=== PATIENT | male | born 1935 | race Two or more races ===

== ENCOUNTER 2018-12-14 15:37 | Emergency (ER) | payer MEDICARE, OTHER ==
[2018-12-14 17:02] VITALS: BP 164/65
--- NOTE | 2018-12-14 19:20 | ER Document Report ---
Entered by JOSÉ WASSERMAN SCRIBE 12/14/18 6610 Acting as scribe for:VANIA LYNN DO ED General - General Chief Complaint: Urinary Retention Stated Complaint: SCHWARTZ ISSUES Time Seen by Provider: 12/14/18 15:58 Mode of Arrival: Ambulatory Information source: Relative Notes: Patient is an 83 year old male with a schwartz catheter presents to the emergency department accompanied by and daughter complaining of urinary retention. Daughter states the patient's schwartz catheter recently fell out and he has been unable to void without it. She states his current catheter has been out for approximately 4 hour and he has been unable to void. Daughter reports he has had 4 catheters varying in size of the past 1-2 months due to acute urinary retention from prostatic hypertrophy further stating 14cm works the best. TRAVEL OUTSIDE OF THE [place] IN LAST 30 DAYS: No - Related Data Allergies/Adverse Reactions: No Known Allergies Allergy (Unverified 12/14/18 15:41) Past Medical History - General Information source: Patient, Relative - Social History Smoking Status: Never Smoker Cigarette use (# per day): No Chew tobacco use (# tins/day): No Smoking Education Provided: No Family History: Reviewed & Not Pertinent Review of Systems - Review of Systems Constitutional: No symptoms reported EENT: No symptoms reported Cardiovascular: No symptoms reported Respiratory: No symptoms reported Gastrointestinal: No symptoms reported Genitourinary: No symptoms reported Male Genitourinary: No symptoms reported Musculoskeletal: No symptoms reported Skin: No symptoms reported Hematologic/Lymphatic: No symptoms reported Neurological/Psychological: No symptoms reported -: Yes All other systems reviewed and negative Physical Exam - Vital signs Vitals: Temp Pulse Resp BP Pulse Ox 97.5 F 64 16 174/74 H 97 12/14/18 15:44 12/14/18 15:44 12/14/18 15:44 12/14/18 15:44 12/14/18 15:44 - Notes Notes: GENERAL: Alert, interacts well. No acute distress. HEAD: Normocephalic, atraumatic. EYES: Pupils equal, round, and reactive to light. Extraocular movements intact. ENT: Oral mucosa moist, tongue midline. NECK: Full range of motion. Supple. Trachea midline. LUNGS: Clear to auscultation bilaterally, no wheezes, rales, or rhonchi. No respiratory distress. EXTREMITIES: Moves all 4 extremities spontaneously. NEUROLOGICAL: Alert and oriented x3. Normal speech. PSYCH: Normal affect, normal mood. SKIN: Warm, dry, normal turgor. No rashes or lesions noted. Course - Re-evaluation Re-evalutation: 12/14/18 16:11 Schwartz catheter will be reinserted. Patient is failed trial of voiding. Patient is already on finasteride and Flomax. Patient will be discharged to home to follow-up with his urologist. 12/14/18 17:[address], size 14, 300 mL's of clear urine drained. Tolerated the procedure well. No leakage from around the catheter. External genitalia unremarkable without any signs of trauma. - Vital Signs Vital signs: Temp Pulse Resp BP Pulse Ox 97.6 F 68 16 164/65 H 98 12/14/18 17:02 12/14/18 17:02 12/14/18 15:44 12/14/18 17:02 12/14/18 17:02 Discharge - Discharge Clinical Impression: Prostate hypertrophy, Urinary retention due to benign prostatic hyperplasia Condition: Stable Disposition: HOME, SELF-CARE Additional Instructions: Schwartz Catheter Care Tube Position: Keep the catheter connected to the drainage tubing at all times. Avoid pulling on the catheter. Keep the drainage tube taped to the mid- thigh, on top of your leg (not underneath it). Be sure there are no kinks or loops in the tube. Keep the drainage bag below the bladder. When in bed, the drainage bag should hang below the abdomen but should not lie on the floor. The drainage bag has hooks at the top so it can be hung on a chair or bed. Daily Cleaning: Wash your hands with soap and water before and after caring for your catheter. Twice a day, clean yourself where the catheter goes into the urethra. Use a warm, soapy wash cloth to clean around the urethral opening and the first few inches of the catheter. Females should wash from front to back to decrease the risk of infection from fecal material. After washing with soap, rinse the area with water. Do not put powder around the catheter. Apply ointment only if instructed by your doctor or nurse. Follow up if you develop fever or chills, flank or abdominal pain, blood in the urine, or if urine is not draining into the catheter. Scribe Attestation: 12/14/18 19:20 I personally performed the services described in the documentation, reviewed and edited the documentation which was dictated to the scribe in my presence, and it accurately records my words and actions. I personally performed the services described in the documentation, reviewed and edited the documentation which was dictated to the scribe in my presence, and it accurately records my words and actions.
== END 2018-12-14 17:02 | disposition home or self-care (01) ==
LOC: ER 15:37
DX: N40.0 Benign prostatic hyperplasia without lower urinary tract symptoms (principal); R33.9 Retention of urine, unspecified
CPT/HCPCS: 51702; 99283

== ENCOUNTER 2019-03-15 16:57 | Inpatient (IN) | payer MEDICARE, OTHER ==
--- NOTE | 2019-03-15 17:10 | ER Document Report ---
ED Medical Screen (RME) - General Chief Complaint: Decreased Appetite Stated Complaint: FEVER Time Seen by Provider: 03/15/19 17:04 Mode of Arrival: Ambulatory Information source: Patient, Relative - DAUGHTER Notes: Patient presents to the emergency department with complaints of weakness for a bout a week, worse the past day or so. Daughter reports patient has prostate issues. He recently had a procedure to reduce the prostate on March 02. Surgery was done in [facility] where he lives. Family has a house here at [facility] and are visiting. His Diaz catheter was removed on March 09. According to the daughter he was voiding okay. Patient reports he is voiding now without problems. Daughter reports temperature of 102 at home. No antipyretics given temperature upon arrival was 100.0. Reports her father will not eat, reports he is already full. Denies vomiting diarrhea. Patient reports he feels fine although he does not look like he feels fine. Looks pale eyes are red rimmed. Left wrist hand with ecchymosis. Daughter reports he fell out of the chair while he was sleeping yesterday. I have greeted and performed a rapid initial assessment of this patient. A c omprehensive ED assessment and evaluation of the patient, analysis of test results and completion of the medical decision making process will be conducted by additional ED providers. Dictation of this chart was performed using voice recognition software; therefore, there may be some unintended grammatical errors. TRAVEL OUTSIDE OF THE [place] IN LAST 30 DAYS: No - Related Data Allergies/Adverse Reactions: No Known Allergies Allergy (Verified 03/15/19 16:57) Past Medical History Renal/ Medical History: Denies: Hx Peritoneal Dialysis Past Surgical History: Reports: Hx Abdominal Surgery - hernia repairs Physical Exam - Vital signs Vitals: Temp Pulse Resp BP Pulse Ox 100 F 103 H 34 H 157/62 H 91 L 03/15/19 17:04 03/15/19 17:04 03/15/19 17:04 03/15/19 17:04 03/15/19 17:04 Course - Vital Signs Vital signs: Temp Pulse Resp BP Pulse Ox 102.6 F H 103 H 34 H 157/62 H 91 L 03/15/19 17:52 03/15/19 17:04 03/15/19 17:04 03/15/19 17:04 03/15/19 17:04 - Laboratory Result Diagrams: 03/15/19 17:15 03/15/19 17:15 Laboratory results interpreted by me: 03/15/19 03/15/19 03/15/19 17:15 17:15 17:15 WBC 13.6 H RBC 3.71 L Hgb 10.4 L Hct 32.1 L RDW 14.7 H Seg Neutrophils % 85.7 H Lymphocytes % 7.5 L Absolute Neutrophils 11.7 H VBG pH Sodium 136.9 L Carbon Dioxide 21 L Glucose 159 H Lactic Acid 3.2 H Urine Protein Urine Ketones Urine Blood Ur Leukocyte Esterase Urine Ascorbic Acid 03/15/19 03/15/19 18:03 18:30 WBC RBC Hgb Hct RDW Seg Neutrophils % Lymphocytes % Absolute Neutrophils VBG pH 7.44 H Sodium Carbon Dioxide Glucose Lactic Acid Urine Protein 100 H Urine Ketones TRACE H Urine Blood LARGE H Ur Leukocyte Esterase LARGE H Urine Ascorbic Acid 20 H
[2019-03-15 17:38] LABS: ABSOLUTE EOSINOPHILS # (AUTO) 0.2 10^3/uL (0.0-0.6); ABSOLUTE MONOCYTES (AUTO) 0.7 10^3/uL (0.1-1.4); ABSOLUTE NEUT (AUTO) 11.7 10^3/uL (1.7-8.2); BASOPHILS % (AUTO) 0.1 % (0-2); EOSINOPHILS % (AUTO) 1.6 % (0-6); HEMATOCRIT 32.1 % (37.9-51.0); HEMOGLOBIN 10.4 g/dL (13.5-17.0); LYMPHOCYTES % (AUTO) 7.5 % (13-45); MEAN CORPUSCULAR HEMOGLOBIN 28.1 pg (27.0-33.4); MEAN CORPUSCULAR HGB CONC 32.5 g/dL (32.0-36.0); MEAN CORPUSCULAR VOLUME 87 fl (80-97); MONOCYTES % (AUTO) 5.1 % (3-13); PLATELET COUNT 249 10^3/uL (150-450); RED BLOOD COUNT 3.71 10^6/uL (4.35-5.55); RED CELL DISTRIBUTION WIDTH 14.7 % (11.5-14.0); SEGMENTED NEUTROPHILS % (AUTO) 85.7 % (42-78); TOTAL CELLS COUNTED % (AUTO) 100 %; WHITE BLOOD COUNT 13.6 10^3/uL (4.0-10.5)
[2019-03-15 17:52] LABS: ALANINE AMINOTRANSFERASE 27 U/L (21-72); ALBUMIN 3.5 g/dL (3.5-5.0); ALKALINE PHOSPHATASE 94 U/L (38-126); ANION GAP 12 (5-19); ASPARTATE AMINO TRANSFERASE 27 U/L (17-59); BILIRUBIN,DIRECT 0.3 mg/dL (0.0-0.4); BILIRUBIN,TOTAL 0.6 mg/dL (0.2-1.3); BLOOD UREA NITROGEN 17 mg/dL (7-20); CALCIUM 8.6 mg/dL (8.4-10.2); CARBON DIOXIDE 21 mmol/L (22-30); CHLORIDE 104 mmol/L (98-107); GLUCOSE 159 mg/dL (75-110); POTASSIUM 3.6 mmol/L (3.6-5.0); SODIUM 136.9 mmol/L (137-145)
--- NOTE | 2019-03-15 18:05 | RADIOLOGY REPORT (SQ) ---
EXAM DESCRIPTION: CHEST 2 VIEWS COMPLETED DATE/TIME: 03/15/2019 5:45 pm REASON FOR STUDY: fever COMPARISON: None. TECHNIQUE: Frontal and lateral radiographic views of the chest acquired. NUMBER OF VIEWS: Two view. LIMITATIONS: None. FINDINGS: LUNGS AND PLEURA: No pneumothorax. Coarse interstitial -nodular changes in both lungs, ba silar predominance, left greater than right. No dense consolidation or significant pleural effusion. MEDIASTINUM AND HILAR STRUCTURES: Age-appropriate contour. HEART AND VASCULAR STRUCTURES: Normal size. BONES: No acute findings. HARDWARE: None in the chest. OTHER: No other significant finding. IMPRESSION: Coarse interstitial -nodular changes in both lungs, basilar predominance, left greater t miranda right. No dense consolidation or significant pleural effusion. TECHNICAL DOCUMENTATION: JOB ID: [id number] [id number] 2010 [employer]- All Rights Reserved Reading location - IP/workstation name: [email or web address]
[2019-03-15] MEDS ORDERED: NORMAL SALINE 1000 ML 1,000 ML IV ONE (18:44)
[2019-03-15 19:17] LABS: VENOUS BLOOD HCO3 23.7 mmol/L (20-32); VENOUS BLOOD PCO2 35.3 mmHg (35-63); VENOUS BLOOD PH 7.44 (7.30-7.42)
[2019-03-15 19:36] LABS: INTERNATIONAL RATION (INR) 1.03
[2019-03-15 19:51] LABS: APPEARANCE,URINE SLIGHTLY-CLOUDY; BILIRUBIN,URINE NEGATIVE (NEGATIVE); COLOR,URINE YELLOW; GLUCOSE, URINE NEGATIVE (NEGATIVE); KETONES,URINE TRACE mg/dL (NEGATIVE); LEUKOCYTE ESTERASE,URINE LARGE (NEGATIVE); NITRITE,URINE NEGATIVE (NEGATIVE); PROTEIN,URINE 100 mg/dL (NEGATIVE); URINE SPECIFIC GRAVITY 1.015; UROBILINOGEN,URINE NEGATIVE mg/dL (<2.0)
[2019-03-15] MEDS ORDERED: CEFTRIAXONE 1 GM/D5W RTU 1 GM/50 ML RTUPB IV ONE (20:00)
--- NOTE | 2019-03-15 20:59 | ER Document Report ---
Entered by JENA PINEDA SCRIBE 03/15/19 1844 Acting as scribe for:VANIA LYNN DO ED General - General Chief Complaint: Decreased Appetite Stated Complaint: FEVER Time Seen by Provider: 03/15/19 17:04 Mode of Arrival: Ambulatory Notes: Patient is an 83-year-old male presenting to the emergency department with a history of a TURP procedure on March 02, complaining of fever for the last few days. Daughter at bedside states that he had a fever of 99.5 yesterday that progressed to 102.5 today. Daughter states that he has been sluggish, coughing, has dyspnea on exertion, and has decreased appetite. Daughter states that patient has a history of BPH and that he had a catheter taken out 6 days ago on March 09. Daughter at bedside denies him having any confusion, vomiting, or diarrhea. TRAVEL OUTSIDE OF THE [place] IN LAST 30 DAYS: No - Related Data Allergies/Adverse Reactions: No Known Allergies Allergy (Verified 03/15/19 16:57) Past Medical History - General Information source: Patient, Relative - DAUGHTER - Social History Smoking Status: Never Smoker Cigarette use (# per day): No Chew tobacco use (# tins/day): No Frequency of alcohol use: None Drug Abuse: None Family History: Reviewed & Not Pertinent Patient has suicidal ideation: No Patient has homicidal ideation: No - Past Medical History Cardiac Medical History: Reports: Hx Hypercholesterolemia Endocrine Medical History: Denies: Hx Diabetes Mellitus Type 1, Hx Diabetes Mellitus Type 2 Renal/ Medical History: Reports: Hx Benign Prostatic Hyperplasia Past Surgical History: Reports: Hx Abdominal Surgery - hernia repairs, Other - TURP proceedure Review of Systems - Review of Systems Constitutional: See HPI, Fever, Malaise, Weakness EENT: No symptoms reported Cardiovascular: No symptoms reported Respiratory: See HPI, Cough, Other - Dyspnea on exertion Gastrointestinal: See HPI, Poor appetite. denies: Diarrhea, Vomiting Genitourinary: No symptoms reported Male Genitourinary: No symptoms reported Musculoskeletal: No symptoms reported Skin: No symptoms reported Hematologic/Lymphatic: No symptoms reported Neurological/Psychological: See HPI, Other - sluggishness. denies: Confusion -: Yes All other systems reviewed and negative Physical Exam - Vital signs Vitals: Temp Pulse Resp BP Pulse Ox 100 F 103 H 34 H 157/62 H 91 L 03/15/19 17:04 05/19/19 17:04 03/15/19 17:04 03/15/19 17:04 03/15/19 17:04 Interpretation: Tachypneic, Febrile - Notes Notes: PHYSICAL EXAM GENERAL: Alert, interacts well. No acute distress. HEAD: Normocephalic, atraumatic. EYES: Pupils equal, round, and reactive to light. Extraocular movements intact. ENT: Oral mucosa moist, tongue midline. NECK: Full range of motion. Supple. Trachea midline. LUNGS: Crackles in lower left lobe. Tachypneic. No wheezes, rales, or rhonchi. No respiratory distress. HEART: Regular rate and rhythm. No murmurs, gallops, or rubs. ABDOMEN: Soft, non-tender. Non-distended. Bowel sounds present in all 4 quadrants. No guarding, rigidity, or rebound. EXTREMITIES: 1+ pitting edema in the right lower extremity. Moves all 4 extremities spontaneously. No radial and dorsalis pedis pulses 2/4 bilaterally. No cyanosis. NEUROLOGICAL: Alert and oriented x3. Normal speech. PSYCH: Normal affect, normal mood. SKIN: Warm, dry. No rashes or lesions noted. Course - Re-evaluation Re-evalutation: 03/15/19 20:58 CBC shows leukocytosis at 13.6, there is an anemia with globin 10.4, no need for transfusion, lactic acid elevated at 3.2, no acidosis in the venous blood gas, mild dehydration with a CO2 of 21, no renal failure, urinalysis shows large blood and large leukocyte esterase, sent for culture, chest x-ray shows coarse interstitial nodular pattern. Patient was placed on oxygen due to his hypoxia. Patient will be treated with Rocephin IV, discussed with Dr. Leone the hospitalist who agrees to accept the patient to his service for urinary tract infection and possible atypical pneumonia on a medical floor. - Vital Signs Vital signs: Temp Pulse Resp BP Pulse Ox 100.0 F 103 H 29 H 117/60 99 03/15/19 21:36 03/15/19 17:04 03/15/19 22:01 03/15/19 22:00 03/15/19 22:01 - Laboratory Result Diagrams: 03/15/19 17:15 03/15/19 17:15 Laboratory results interpreted by me: 03/15/19 03/15/19 03/15/19 17:15 17:15 17:15 WBC 13.6 H RBC 3.71 L Hgb 10.4 L Hct 32.1 L RDW 14.7 H Seg Neutrophils % 85.7 H Lymphocytes % 7.5 L Absolute Neutrophils 11.7 H VBG pH Sodium 136.9 L Carbon Dioxide 21 L Glucose 159 H Lactic Acid 3.2 H Urine Protein Urine Ketones Urine Blood Ur Leukocyte Esterase Urine Ascorbic Acid 03/15/19 03/15/19 18:03 18:30 WBC RBC Hgb Hct RDW Seg Neutrophils % Lymphocytes % Absolute Neutrophils VBG pH 7.44 H Sodium Carbon Dioxide Glucose Lactic Acid Urine Protein 100 H Urine Ketones TRACE H Urine Blood LARGE H Ur Leukocyte Esterase LARGE H Urine Ascorbic Acid 20 H - EKG Interpretation by Me Additional EKG results interpreted by me: 03/15/19 20:59 EKG shows sinus rhythm at a rate of 87, left axis deviation, normal intervals, no ST segment elevations or depressions, no T wave inversions per my interpretation. Discharge - Discharge Clinical Impression: UTI (urinary tract infection), Hypoxia, Atypical pneumonia Condition: Fair Disposition: ADMITTED INPATIENT Admitting Provider: Sulema (Hospitalist) Unit Admitted: Medical Floor I personally performed the services described in the documentation, reviewed and edited the documentation which was dictated to the scribe in my presence, and it accurately records my words and actions.
[2019-03-15] MEDS ORDERED: ONDANSETRON HCL INJ/PF 4 MG/2 ML SDV IV PRN (21:26)
[2019-03-15] MEDS ORDERED: TEMAZEPAM 7.5 MG CAPSULE PO PRN (21:26)
[2019-03-15] MEDS ORDERED: MAG HYDROX/AL HYDROX/SIMETH SUSP 30 ML UDCUP PO PRN (21:26)
[2019-03-15] MEDS ORDERED: MAGNESIUM HYDROXIDE SUSP 30 ML UDCUP PO PRN (21:26)
[2019-03-15] MEDS ORDERED: NALBUPHINE HCL INJ 10 MG/1 ML AMPULE IV PRN (21:32)
[2019-03-15] MEDS ORDERED: LEVALBUTEROL HCL NEB 0.63 MG/3 ML AMPUL NEB PRN (21:32)
[2019-03-15] MEDS ORDERED: IBUPROFEN 800 MG TABLET PO PRN (21:32)
[2019-03-15] MEDS ORDERED: ACETAMINOPHEN 325 MG TABLET PO PRN (21:32)
[2019-03-15] MEDS ORDERED: ACETAMINOPHEN 650 MG SUPP.RECT PR PRN (21:32)
[2019-03-15] MEDS ORDERED: ERTAPENEM SODIUM INJ 1 GM VIAL IV PRN (21:45)
[2019-03-15] MEDS ORDERED: AZITHROMYCIN INJ 500 MG VIAL IV SCH (22:00)
[2019-03-15] MEDS ORDERED: ERTAPENEM SODIUM 1 GM in NORMAL SALINE 50 ML IV SCH (22:00)
[2019-03-15] MEDS ORDERED: ERTAPENEM SODIUM INJ 1 GM VIAL ONE (23:36)
[2019-03-15] MEDS ORDERED: AZITHROMYCIN INJ 500 MG VIAL IV ONE (23:36)
--- NOTE | 2019-03-15 23:48 | EKG REPORT ---
SEVERITY:- NORMAL ECG - SINUS RHYTHM : Confirmed by: Alfonzo Armstrong MD 15-Mar-2019 23:47:22
[2019-03-16] MEDS: RINGERS SOLUTION,LACTATED 1,000 ML IV PRN ×3 (00:17→15:40)
--- NOTE | 2019-03-16 00:28 | PDOC H&P ---
History of Present Illness Admission Date/PCP: 03/15/19 21:04 No PCP Patient complains of: Weakness History of Present Illness: YURI COLLADO is a 83 year old male who presented to the emergency room with a one- week history of progressive weakness. The patient his family admit progressive weakness beginning 1 week ago and becoming severe over the 24 hours prior to admission. His weakness was accompanied by dyspnea on exertion, swelling of his lower extremities, mild nonproductive cough, moderate anorexia, moderate fatigue and a fever which increased to 102.5 on the day of admission. They further explained that he recently had a TURP performed in [facility] and his Diaz catheter was removed on the of this month. He had not had any difficulty voiding since that time and has not been passing blood. They deny prior similar symptoms and have not identified any other aggravating or ameliorating factors for his weakness. In the emergency room he was found to have significant pyuria with an elevated lactate at 3.2, hyperglycemia and a chest x-ray showing bibasilar nodular interstitial infiltrates. With these findings patient was admitted to the hospital for further evaluation and treatment. Past Medical History Cardiac Medical History: Reports: Hyperlipidema, Hypertension Denies: Atrial Fibrillation, Congestive Heart Failure, Coronary Artery Disease, Myocardial Infarction, Peripheral Vascular Disease Pulmonary Medical History: Denies: Asthma, Chronic Obstructive Pulmonary Disease (COPD) EENT Medical History: Denies: Cataracts, Eyes - Prescription lenses, Ears - Hearing aids Neurological Medical History: Denies: Hemorrhagic CVA, Ischemic CVA, Seizures Endocrine Medical History: Denies: Diabetes Mellitus Type 1, Diabetes Mellitus Type 2, Hyperthyroidism, Hypothyroidism, Obesity Renal/ Medical History: Reports: Other - Cystolithiasis, benign prostatic hypertrophy Denies: Chronic Kidney Disease, Nephrolithiasis Malignancy Medical History: Reports: None GI Medical History: Denies: Cirrhosis, Hepatitis Musculoskeltal Medical History: Denies: Arthritis, Gout Skin Medical History: Denies: Eczema, Psoriasis Psychiatric Medical History: Denies: Alcohol Dependency, Substance Abuse, Tobacco Dependency Traumatic Medical History: Reports: None Hematology: Denies: Anemia, Bleeding Tendencies Infectious Medical History: Reports: Methicillin-Resistant Staph Aureus - Postoperative infection 3 months ago Past Surgical History Past Surgical History: TURP 03/02/19 Past Surgical History: Reports: Herniorrhaphy - Bilateral, Other - Cystoscopic removal of a large bladder stone after U/S destruction Social History Information Source: Patient, Relative Lives with: Family Smoking Status: Never Smoker Frequency of Alcohol Use: None Hx Recreational Drug Use: No Drugs: None Hx Prescription Drug Abuse: No - Advance Directive Resuscitation Status: Full Code Surrogate healthcare decision maker:: Jimena Osorio Family History Family History: Other - Father of tuberculosis Parental Family History Reviewed: Yes Children Family History Reviewed: No Sibling(s) Family History Reviewed.: Unknown Medication/Allergy Allergies/Adverse Reactions: No Known Allergies Allergy (Verified 03/15/19 16:57) Review of Systems Constitutional: PRESENT: as per HPI, anorexia, fatigue, fever(s), weakness. ABSENT: chills Eyes: ABSENT: visual disturbances, other - Ocular pain Ears: ABSENT: hearing changes, other - Ear pain Nose, Mouth, and Throat: ABSENT: mouth pain, sore throat Cardiovascular: PRESENT: as per HPI, dyspnea on exertion - Mild to moderate, edema - Bilateral lower extremities. ABSENT: chest pain, palpitations Respiratory: PRESENT: as per HPI, cough - Nonproductive. ABSENT: dyspnea - No dyspnea at rest, sputum Gastrointestinal: ABSENT: abdominal pain, constipation, diarrhea, nausea, vomiting Genitourinary: ABSENT: dysuria, hematuria Musculoskeletal: ABSENT: back pain, joint swelling, muscle weakness Integumentary: ABSENT: pruritus, rash Neurological: ABSENT: confusion, convulsions, focal weakness, memory loss, syncope Psychiatric: ABSENT: anxiety, depression Endocrine: ABSENT: cold intolerance, heat intolerance Hematologic/Lymphatic: ABSENT: easy bleeding, easy bruising Physical Exam Vital Signs: Temp Pulse Resp BP Pulse Ox 102.6 F H 103 H 34 H 157/62 H 91 L 03/15/19 17:52 03/15/19 17:04 03/15/19 17:04 03/15/19 17:04 03/15/19 17:04 Intake & Output 03/13/19 03/14/19 03/15/19 23:59 23:59 23:59 Weight 56 kg General appearance: PRESENT: no acute distress, cooperative Head exam: PRESENT: atraumatic, normocephalic Eye exam: ABSENT: conjunctival injection, scleral icterus Ear exam: PRESENT: normal external ear exam. ABSENT: bleeding, drainage Mouth exam: PRESENT: dry mucosa, neck supple Neck exam: ABSENT: JVD, thyromegaly, tracheal deviation Respiratory exam: PRESENT: clear to auscultation galileo, symmetrical, unlabored Cardiovascular exam: PRESENT: RRR. ABSENT: clicks, gallop, rubs Pulses: PRESENT: normal radial pulses, normal dorsalis pedis pul Vascular exam: PRESENT: normal capillary refill. ABSENT: pallor GI/Abdominal exam: PRESENT: distended - Minimal gaseous distention, hypoactive bowel sounds, soft Rectal exam: PRESENT: deferred Extremities exam: PRESENT: pedal edema - Trace bipedal edema, +1 edema - Bilateral pretibial edema. ABSENT: joint swelling Musculoskeletal exam: ABSENT: deformity, dislocation Neurological exam: PRESENT: alert, oriented to person, oriented to place, oriented to time, oriented to situation, CN II-XII grossly intact. ABSENT: motor sensory deficit Psychiatric exam: PRESENT: appropriate affect, normal mood Skin exam: PRESENT: dry, intact, warm. ABSENT: jaundice, rash, urticaria Results Laboratory Results: 03/15/19 17:15 03/15/19 17:15 03/15/19 03/15/19 03/15/19 17:15 17:15 17:15 WBC 13.6 H RBC 3.71 L Hgb 10.4 L Hct 32.1 L MCV 87 MCH 28.1 MCHC 32.5 RDW 14.7 H Plt Count 249 Seg Neutrophils % 85.7 H Lymphocytes % 7.5 L Monocytes % 5.1 Eosinophils % 1.6 Basophils % 0.1 Absolute Neutrophils 11.7 H Absolute Lymphocytes 1.0 Absolute Monocytes 0.7 Absolute Eosinophils 0.2 Absolute Basophils 0.0 VBG pH VBG pCO2 VBG HCO3 VBG Base Excess Sodium 136.9 L Potassium 3.6 Chloride 104 Carbon Dioxide 21 L Anion Gap 12 BUN 17 Creatinine 0.97 Est GFR ( Amer) > 60 Est GFR (Non-Af Amer) > 60 Glucose 159 H Lactic Acid 3.2 H Calcium 8.6 Total Bilirubin 0.6 AST 27 ALT 27 Alkaline Phosphatase 94 Total Protein 7.0 Albumin 3.5 Urine Color Urine Appearance Urine pH Ur Specific [place] Urine Protein Urine Glucose (UA) Urine Ketones Urine Blood Urine Nitrite Ur Leukocyte Esterase Urine WBC (Auto) Urine RBC (Auto) 03/15/19 03/15/19 18:03 18:30 WBC RBC Hgb Hct MCV MCH MCHC RDW Plt Count Seg Neutrophils % Lymphocytes % Monocytes % Eosinophils % Basophils % Absolute Neutrophils Absolute Lymphocytes Absolute Monocytes Absolute Eosinophils Absolute Basophils VBG pH 7.44 H VBG pCO2 35.3 VBG HCO3 23.7 VBG Base Excess 0 Sodium Potassium Chloride Carbon Dioxide Anion Gap BUN Creatinine Est GFR ( Amer) Est GFR (Non-Af Amer) Glucose Lactic Acid Calcium Total Bilirubin AST ALT Alkaline Phosphatase Total Protein Albumin Urine Color YELLOW Urine Appearance SLIGHTLY-CLOUDY Urine pH 6.0 Ur Specific [place] 1.015 Urine Protein 100 H Urine Glucose (UA) NEGATIVE Urine Ketones TRACE H Urine Blood LARGE H Urine Nitrite NEGATIVE Ur Leukocyte Esterase LARGE H Urine WBC (Auto) >182 Urine RBC (Auto) 175 Impressions: Chest X-Ray 03/15/19 17:15 IMPRESSION: Coarse interstitial -nodular changes in both lungs, basilar predominance, left greater than right. No dense consolidation or significant pleural effusion. Assessment and Plan - Diagnosis (1) SIRS (systemic inflammatory response syndrome) Is this a current diagnosis for this admission?: Yes Plan: Patient is noted to have a history of fever, elevated lactic acid and a known source of infection (urine) with systemic symptoms of fatigue and weakness as well as anorexia. Additionally he was noted to have a cough and an atypical pneumonia on chest x-ray. He will be treated with broad-spectrum antibiotics to cover his 2 potential sources of infection and cultures will be obtained. He will be observed closely for further signs or symptoms that may indicate a true sepsis. Serial laboratory evaluations including lactic acid, CBC, basic metabolic profile and magnesium levels will be obtained during his hospital course. Additionally a thyroid profile will be obtained. (2) Acute respiratory failure with hypoxia Is this a current diagnosis for this admission?: Yes Plan: Patient was noted to be hypoxic on room air and had excellent resolution of his hypoxia with nasal cannula oxygen at 2 L/min. He will continue to receive supplemental oxygen as needed per the oxygen protocol to maintain his O2 saturation at a normal level. His O2 saturation will be monitored throughout his hospital course. (3) UTI (urinary tract infection) Qualifiers: Urinary tract infection type: acute cystitis Hematuria presence: with hematuria Qualified Code(s): N30.01 - Acute cystitis with hematuria Is this a current diagnosis for this admission?: Yes Plan: Patient started on ertapenem IV pending culture results. Nubain 10 mg IV every 3 hours as needed for pain will be available for the patient's use. Patient's Flomax will be continued. He will be monitored with daily CBCs and metabolic profiles to evaluate his therapeutic response and monitor for complications. (4) Atypical pneumonia Is this a current diagnosis for this admission?: Yes Plan: Patient is started on IV azithromycin. He will be monitored on a regular basis for adequate oxygenation utilizing an O2 sat monitor. Additionally daily CBCs will be obtained as part of monitoring his therapeutic response. - Time Time Spent with patient: 25-34 minutes Medications reviewed and adjusted accordingly: Yes Anticipated discharge: Home - Inpatient Certification Based on my medical assessment, after consideration of the patient's comorbidities, presenting symptoms, or acuity I expect that the services needed warrant INPATIENT care.: Yes I certify that my determination is in accordance with my understanding of Medicare's requirements for reasonable and necessary INPATIENT services [42 CFR 412.3e].: Yes Medical Necessity: Need Close Monitoring Due to Risk of Patient Decompensation, Need For IV Fluids, Need for IV Antibiotics, Risk of Complication if Not Cared For in Hospital
[2019-03-16] MEDS: HEPARIN SOD (PORCINE) 5,000 UNIT/ML 1 ML SYRINGE SUBCUT SCH ×4 (02:37→22:22)
[2019-03-16] MEDS: FAMOTIDINE 20 MG TABLET PO SCH ×3 (05:16→22:22)
[2019-03-16 06:09] LABS: HEMATOCRIT 27.5 % (37.9-51.0); HEMOGLOBIN 9.2 g/dL (13.5-17.0); MEAN CORPUSCULAR HEMOGLOBIN 28.4 pg (27.0-33.4); MEAN CORPUSCULAR HGB CONC 33.4 g/dL (32.0-36.0); MEAN CORPUSCULAR VOLUME 85 fl (80-97); PLATELET COUNT 205 10^3/uL (150-450); RED BLOOD COUNT 3.24 10^6/uL (4.35-5.55); RED CELL DISTRIBUTION WIDTH 14.8 % (11.5-14.0)
[2019-03-16 08:42] LABS: FREE T3 2.88 pg/mL (2.77-5.27); FREE T4 (FREE THYROXINE) 1.45 ng/dL (0.78-2.19)
[2019-03-16 09:10] LABS: THYROID STIMULATING HORMONE 3.19 uIU/mL (0.47-4.68)
[2019-03-16 09:43] LABS: ANION GAP 9 (5-19); BLOOD UREA NITROGEN 13 mg/dL (7-20); CALCIUM 7.7 mg/dL (8.4-10.2); CARBON DIOXIDE 21 mmol/L (22-30); CHLORIDE 110 mmol/L (98-107); GLUCOSE 122 mg/dL (75-110); POTASSIUM 3.6 mmol/L (3.6-5.0); SODIUM 139.5 mmol/L (137-145)
[2019-03-16] MEDS: DOCUSATE SODIUM 100 MG CAPSULE PO SCH ×2 (11:10→18:17)
--- NOTE | 2019-03-16 14:06 | PDOC PROGRESS REPORT ---
Subjective Progress Note for:: 03/16/19 Subjective:: YURI COLLADO is a 83 year old male who presented to the emergency room with a one- week history of progressive weakness. The patient his family admit progressive weakness beginning 1 week ago and becoming severe over the 24 hours prior to admission. His weakness was accompanied by dyspnea on exertion, swelling of his lower extremities, mild nonproductive cough, moderate anorexia, moderate fatigue and a fever which increased to 102.5 on the day of admission. They further explained that he recently had a TURP performed in [facility] and his Diaz catheter was removed on the of this month. He had not had any difficulty voiding since that time and has not been passing blood. They deny prior similar symptoms and have not identified any other aggravating or ameliorating factors for his weakness. In the emergency room he was found to have significant pyuria with an elevated lactate at 3.2, hyperglycemia and a chest x-ray showing bibasilar nodular interstitial infiltrates. With these findings patient was admitted to the hospital for further evaluation and treatment. Reason For Visit: WEAKNESS Physical Exam Vital Signs: Temp Pulse Resp BP Pulse Ox 98.7 F 75 16 106/49 L 94 03/16/19 11:35 03/16/19 12:53 03/16/19 12:53 03/16/19 11:35 03/16/19 12:53 Intake & Output 03/15/19 03/16/19 03/17/19 06:59 06:59 06:59 Intake Total 2819 Output Total 720 Balance 2099 Weight 56.2 kg General appearance: PRESENT: no acute distress, well-developed, well-nourished Head exam: PRESENT: atraumatic, normocephalic Respiratory exam: PRESENT: clear to auscultation galileo. ABSENT: rales, rhonchi, wheezes Cardiovascular exam: PRESENT: RRR. ABSENT: diastolic murmur, rubs, systolic murmur GI/Abdominal exam: PRESENT: normal bowel sounds, soft. ABSENT: distended, guarding, mass, organolmegaly, rebound, tenderness Neurological exam: PRESENT: alert, awake, oriented to person, oriented to place, oriented to time, oriented to situation, CN II-XII grossly intact. ABSENT: motor sensory deficit Results Laboratory Results: 03/16/19 05:58 03/16/19 05:58 03/15/19 03/15/19 03/15/19 17:15 17:15 17:15 WBC 13.6 H RBC 3.71 L Hgb 10.4 L Hct 32.1 L MCV 87 MCH 28.1 MCHC 32.5 RDW 14.7 H Plt Count 249 Seg Neutrophils % 85.7 H Lymphocytes % 7.5 L Monocytes % 5.1 Eosinophils % 1.6 Basophils % 0.1 Absolute Neutrophils 11.7 H Absolute Lymphocytes 1.0 Absolute Monocytes 0.7 Absolute Eosinophils 0.2 Absolute Basophils 0.0 VBG pH VBG pCO2 VBG HCO3 VBG Base Excess Sodium 136.9 L Potassium 3.6 Chloride 104 Carbon Dioxide 21 L Anion Gap 12 BUN 17 Creatinine 0.97 Est GFR ( Amer) > 60 Est GFR (Non-Af Amer) > 60 Glucose 159 H Lactic Acid 3.2 H Calcium 8.6 Magnesium Total Bilirubin 0.6 AST 27 ALT 27 Alkaline Phosphatase 94 Total Protein 7.0 Albumin 3.5 TSH Free T4 Free T3 pg/mL Urine Color Urine Appearance Urine pH Ur Specific [place] Urine Protein Urine Glucose (UA) Urine Ketones Urine Blood Urine Nitrite Ur Leukocyte Esterase Urine WBC (Auto) Urine RBC (Auto) 03/15/19 03/15/19 03/15/19 18:03 18:30 23:21 WBC RBC Hgb Hct MCV MCH MCHC RDW Plt Count Seg Neutrophils % Lymphocytes % Monocytes % Eosinophils % Basophils % Absolute Neutrophils Absolute Lymphocytes Absolute Monocytes Absolute Eosinophils Absolute Basophils VBG pH 7.44 H VBG pCO2 35.3 VBG HCO3 23.7 VBG Base Excess 0 Sodium Potassium Chloride Carbon Dioxide Anion Gap BUN Creatinine Est GFR ( Amer) Est GFR (Non-Af Amer) Glucose Lactic Acid 0.9 Calcium Magnesium Total Bilirubin AST ALT Alkaline Phosphatase Total Protein Albumin TSH Free T4 Free T3 pg/mL Urine Color YELLOW Urine Appearance SLIGHTLY-CLOUDY Urine pH 6.0 Ur Specific [place] 1.015 Urine Protein 100 H Urine Glucose (UA) NEGATIVE Urine Ketones TRACE H Urine Blood LARGE H Urine Nitrite NEGATIVE Ur Leukocyte Esterase LARGE H Urine WBC (Auto) >182 Urine RBC (Auto) 175 03/16/19 03/16/19 03/16/19 01:47 05:58 05:58 WBC 10.0 RBC 3.24 L Hgb 9.2 L Hct 27.5 L MCV 85 MCH 28.4 MCHC 33.4 RDW 14.8 H Plt Count 205 Seg Neutrophils % Lymphocytes % Monocytes % Eosinophils % Basophils % Absolute Neutrophils Absolute Lymphocytes Absolute Monocytes Absolute Eosinophils Absolute Basophils VBG pH VBG pCO2 VBG HCO3 VBG Base Excess Sodium Potassium Chloride Carbon Dioxide Anion Gap BUN Creatinine Est GFR ( Amer) Est GFR (Non-Af Amer) Glucose Lactic Acid 1.6 0.8 Calcium Magnesium Total Bilirubin AST ALT Alkaline Phosphatase Total Protein Albumin TSH Free T4 Free T3 pg/mL Urine Color Urine Appearance Urine pH Ur Specific [place] Urine Protein Urine Glucose (UA) Urine Ketones Urine Blood Urine Nitrite Ur Leukocyte Esterase Urine WBC (Auto) Urine RBC (Auto) 03/16/19 03/16/19 05:58 05:58 WBC RBC Hgb Hct MCV MCH MCHC RDW Plt Count Seg Neutrophils % Lymphocytes % Monocytes % Eosinophils % Basophils % Absolute Neutrophils Absolute Lymphocytes Absolute Monocytes Absolute Eosinophils Absolute Basophils VBG pH VBG pCO2 VBG HCO3 VBG Base Excess Sodium 139.5 Potassium 3.6 Chloride 110 H Carbon Dioxide 21 L Anion Gap 9 BUN 13 Creatinine 0.74 Est GFR ( Amer) > 60 Est GFR (Non-Af Amer) > 60 Glucose 122 H Lactic Acid Calcium 7.7 L Magnesium 2.3 Total Bilirubin AST ALT Alkaline Phosphatase Total Protein Albumin TSH 3.19 Free T4 1.45 Free T3 pg/mL 2.88 Urine Color Urine Appearance Urine pH Ur Specific [place] Urine Protein Urine Glucose (UA) Urine Ketones Urine Blood Urine Nitrite Ur Leukocyte Esterase Urine WBC (Auto) Urine RBC (Auto) Impressions: Chest X-Ray 03/15/19 17:15 IMPRESSION: Coarse interstitial -nodular changes in both lungs, basilar predominance, left greater than right. No dense consolidation or significant pleural effusion. Assessment and Plan - Diagnosis (1) Acute respiratory failure with hypoxia Is this a current diagnosis for this admission?: Yes Plan: Improved. Due to underlying [place]. Continue supplemental oxygen, IV antibiotics. Day 2 IV Antibiotics. Follow up cultures. (2) SIRS (systemic inflammatory response syndrome) Is this a current diagnosis for this admission?: Yes Plan: Due to #1. Patient noted to have fever, elevated lactic acid and a known source of infection (urine) with systemic symptoms of fatigue and weakness as well as anorexia. Continue supplemental oxygen, IV antibiotics. Day 2 IV Antibiotics. Follow up cultures. (3) Atypical pneumonia Is this a current diagnosis for this admission?: Yes Plan: Patient is started on IV azithromycin. He will be monitored on a regular basis for adequate oxygenation utilizing an O2 sat monitor. Additionally daily CBCs will be obtained as part of monitoring his therapeutic response. (4) UTI (urinary tract infection) Qualifiers: Urinary tract infection type: acute cystitis Hematuria presence: with hematuria Qualified Code(s): N30.01 - Acute cystitis with hematuria Is this a current diagnosis for this admission?: Yes Plan: Complicated implicated likely due to recent TURP long-term catheter due to BPH prior to TURP. Continue meropenem IV. Continue flomax. Follow up urine culture.
[2019-03-16] MEDS: MEROPENEM 1 GM in NORMAL SALINE 50 ML IV SCH ×2 (15:41→22:21)
[2019-03-16] MEDS: TAMSULOSIN HCL 0.4 MG CAP.SR.24H PO SCH (18:19)
[2019-03-16] MEDS: AZITHROMYCIN 500 MG in DEXTROSE 5%-WATER 250 ML IV SCH (22:22)
[2019-03-17] MEDS: MEROPENEM 1 GM in NORMAL SALINE 50 ML IV SCH ×3 (06:07→22:11)
[2019-03-17] MEDS: HEPARIN SOD (PORCINE) 5,000 UNIT/ML 1 ML SYRINGE SUBCUT SCH ×3 (06:07→22:07)
[2019-03-17 06:50] LABS: HEMATOCRIT 26.1 % (37.9-51.0); HEMOGLOBIN 8.8 g/dL (13.5-17.0); MEAN CORPUSCULAR HEMOGLOBIN 28.8 pg (27.0-33.4); MEAN CORPUSCULAR HGB CONC 33.7 g/dL (32.0-36.0); MEAN CORPUSCULAR VOLUME 85 fl (80-97); PLATELET COUNT 216 10^3/uL (150-450); RED BLOOD COUNT 3.06 10^6/uL (4.35-5.55); RED CELL DISTRIBUTION WIDTH 15.1 % (11.5-14.0); WHITE BLOOD COUNT 9.4 10^3/uL (4.0-10.5)
[2019-03-17 07:23] LABS: ALANINE AMINOTRANSFERASE 46 U/L (21-72); ALBUMIN 2.6 g/dL (3.5-5.0); ALKALINE PHOSPHATASE 101 U/L (38-126); ANION GAP 9 (5-19); ASPARTATE AMINO TRANSFERASE 46 U/L (17-59); BILIRUBIN,DIRECT 0.3 mg/dL (0.0-0.4); BILIRUBIN,TOTAL 0.6 mg/dL (0.2-1.3); BLOOD UREA NITROGEN 10 mg/dL (7-20); CALCIUM 7.8 mg/dL (8.4-10.2); CARBON DIOXIDE 23 mmol/L (22-30); CHLORIDE 105 mmol/L (98-107); GLUCOSE 94 mg/dL (75-110); POTASSIUM 3.7 mmol/L (3.6-5.0); SODIUM 137.4 mmol/L (137-145); TOTAL PROTEIN 5.5 g/dL (6.3-8.2)
[2019-03-17] MEDS: DOCUSATE SODIUM 100 MG CAPSULE PO SCH ×2 (09:47→16:59)
[2019-03-17] MEDS: FAMOTIDINE 20 MG TABLET PO SCH ×2 (09:59→22:14)
[2019-03-17] MEDS: IPRATROPIUM/ALBUTEROL 0.5-2.5 MG/3 ML AMPUL NEB PRN (12:57)
[2019-03-17] MEDS: RINGERS SOLUTION,LACTATED 1,000 ML IV PRN (15:55)
[2019-03-17] MEDS ORDERED: HYDROCORTISONE TP PRN (17:20)
[2019-03-17] MEDS: TAMSULOSIN HCL 0.4 MG CAP.SR.24H PO SCH (17:21)
--- NOTE | 2019-03-17 17:25 | PDOC PROGRESS REPORT ---
Subjective Progress Note for:: 03/17/19 Subjective:: YURI COLLADO is a 83 year old male who presented to the emergency room with a one- week history of progressive weakness. The patient his family admit progressive weakness beginning 1 week ago and becoming severe over the 24 hours prior to admission. His weakness was accompanied by dyspnea on exertion, swelling of his lower extremities, mild nonproductive cough, moderate anorexia, moderate fatigue and a fever which increased to 102.5 on the day of admission. They further explained that [facility] Diaz catheter was removed on the of this month. He had not had any difficulty voiding since that time and has not been passing blood. They deny prior similar symptoms and have not identified any other aggravating or ameliorating factors for his weakness. In the emergency room he was found to have significant pyuria with an elevated lactate at 3.2, hyperglycemia and a chest x-ray showing bibasilar nodular interstitial infiltrates. With these findings patient was admitted to the hospital for further evaluation and treatment. 03/17/2019: Patient is a wheezing. He is on oxygen and does not have home oxygen at baseline. He also developed diarrhea since last night. Reason For Visit: WEAKNESS Physical Exam Vital Signs: Temp Pulse Resp BP Pulse Ox 98.6 F 78 16 114/55 L 94 03/17/19 07:49 03/17/19 13:03 03/17/19 13:03 03/17/19 07:49 03/17/19 13:03 Intake & Output 03/16/19 03/17/19 03/18/19 06:59 06:59 06:59 Intake Total 2819 3100 350 Output Total 720 Balance 2099 3100 350 Weight 123 lb 14.397 oz 123 lb 14.397 oz Exam: Patient is no acute distress Alert oriented to time place person No anxiety or depression Head: atraumatic normocephalic Pupils: are equal reactive Neck: is supple and trachea is central no lymphadenopathy No pharyngeal erythema or exudates Heart: Regular rate and rhythm Lungs: Bilateral wheezing Abdomen: nontender nondistended Neurological exam: unremarkable Musculoskeletal: No joint swelling or effusion chronic lower back pain and tenderness No suicidal or homicidal ideation Results Laboratory Results: 03/17/19 06:13 03/17/19 06:13 03/17/19 03/17/19 03/17/19 06:13 06:13 06:13 WBC 9.4 RBC 3.06 L Hgb 8.8 L Hct 26.1 L MCV 85 MCH 28.8 MCHC 33.7 RDW 15.1 H Plt Count 216 Sodium 137.4 Potassium 3.7 Chloride 105 Carbon Dioxide 23 Anion Gap 9 BUN 10 Creatinine 0.72 Est GFR ( Amer) > 60 Est GFR (Non-Af Amer) > 60 Glucose 94 Calcium 7.8 L Magnesium 2.2 Total Bilirubin 0.6 AST 46 ALT 46 Alkaline Phosphatase 101 Total Protein 5.5 L Albumin 2.6 L 03/15/19 18:03 Clean Catch Midstream Urine Culture - Final NO GROWTH 2 DAYS Impressions: Chest X-Ray 03/15/19 17:15 IMPRESSION: Coarse interstitial -nodular changes in both lungs, basilar predominance, left greater than right. No dense consolidation or significant pleural effusion. Assessment and Plan - Diagnosis (1) Acute respiratory failure with hypoxia Is this a current diagnosis for this admission?: Yes Plan: Improved. Due to underlying [place]. Continue supplemental oxygen, IV antibiotics. Day 2 IV Antibiotics. Follow up cultures. 03/17/2019: Currently on nasal cannula oxygen. Continue. Add DuoNeb due to wheezing. (2) Atypical pneumonia Is this a current diagnosis for this admission?: Yes Plan: Patient is started on IV azithromycin. He will be monitored on a regular basis for adequate oxygenation utilizing an O2 sat monitor. Additionally daily CBCs will be obtained as part of monitoring his therapeutic response. 02/26 and 11/15: Continue current antibiotics. Monitor clinically. DuoNeb as needed. Oxygen as needed. (3) SIRS (systemic inflammatory response syndrome) Is this a current diagnosis for this admission?: Yes Plan: Due to #1. Patient noted to have fever, elevated lactic acid and a known source of infection (urine) with systemic symptoms of fatigue and weakness as well as anorexia. Continue supplemental oxygen, IV antibiotics. Day 2 IV Antibiotics. Follow up cultures. 03/17/2019: Continue antibiotics for pneumonia. Monitor clinically. (4) UTI (urinary tract infection) Qualifiers: Urinary tract infection type: acute cystitis Hematuria presence: with hematuria Qualified Code(s): N30.01 - Acute cystitis with hematuria Is this a current diagnosis for this admission?: Yes Plan: Complicated implicated likely due to recent TURP long-term catheter due to BPH prior to TURP. Continue meropenem IV. Continue flomax. Follow up urine culture. 03/17/2019: Antibiotics. Monitor culture.
[2019-03-17 18:51] LABS: ANION GAP 9 (5-19); BLOOD UREA NITROGEN 10 mg/dL (7-20); CALCIUM 7.5 mg/dL (8.4-10.2); CARBON DIOXIDE 23 mmol/L (22-30); CHLORIDE 103 mmol/L (98-107); GLUCOSE 108 mg/dL (75-110); POTASSIUM 3.5 mmol/L (3.6-5.0); SODIUM 135.2 mmol/L (137-145)
[2019-03-17] MEDS ORDERED: (PENDING PHARMACY ID) (Lovastatin [Altoprev] 20 MG) PO SCH (22:00)
[2019-03-17] MEDS ORDERED: LATANOPROST OU SCH (22:00)
[2019-03-17] MEDS: DORZOLAMIDE HCL 2%/TIMOLOL MALEAT 0.5% OPH SOLN 10 ML OU SCH (22:12)
[2019-03-17] MEDS: LATANOPROST 0.005% OPH SOLN 2.5 ML OU SCH (22:16)
[2019-03-17] MEDS: AZITHROMYCIN 500 MG in DEXTROSE 5%-WATER 250 ML IV SCH (22:54)
[2019-03-18] MEDS: IPRATROPIUM/ALBUTEROL 0.5-2.5 MG/3 ML AMPUL NEB PRN ×3 (00:12→18:38)
[2019-03-18] MEDS: HEPARIN SOD (PORCINE) 5,000 UNIT/ML 1 ML SYRINGE SUBCUT SCH ×3 (05:54→22:02)
[2019-03-18] MEDS: MEROPENEM 1 GM in NORMAL SALINE 50 ML IV SCH ×2 (05:57→13:19)
[2019-03-18 06:55] LABS: HEMATOCRIT 26.4 % (37.9-51.0); MEAN CORPUSCULAR HEMOGLOBIN 28.6 pg (27.0-33.4); MEAN CORPUSCULAR VOLUME 84 fl (80-97); PLATELET COUNT 237 10^3/uL (150-450); RED BLOOD COUNT 3.13 10^6/uL (4.35-5.55); RED CELL DISTRIBUTION WIDTH 14.3 % (11.5-14.0); WHITE BLOOD COUNT 7.1 10^3/uL (4.0-10.5)
[2019-03-18 07:19] LABS: ANION GAP 9 (5-19); BLOOD UREA NITROGEN 11 mg/dL (7-20); CALCIUM 8.2 mg/dL (8.4-10.2); CARBON DIOXIDE 23 mmol/L (22-30); CHLORIDE 107 mmol/L (98-107); GLUCOSE 100 mg/dL (75-110); POTASSIUM 3.6 mmol/L (3.6-5.0); SODIUM 139.4 mmol/L (137-145)
[2019-03-18] MEDS: DOCUSATE SODIUM 100 MG CAPSULE PO SCH ×2 (09:10→17:11)
[2019-03-18] MEDS: FINASTERIDE 5 MG TABLET PO SCH (09:12)
[2019-03-18] MEDS: DORZOLAMIDE HCL 2%/TIMOLOL MALEAT 0.5% OPH SOLN 10 ML OU SCH ×2 (09:12→17:11)
[2019-03-18] MEDS: FAMOTIDINE 20 MG TABLET PO SCH ×2 (09:12→22:08)
[2019-03-18] MEDS ORDERED: ONDANSETRON HCL INJ/PF 4 MG/2 ML SDV IV PRN (11:00)
--- NOTE | 2019-03-18 14:00 | PDOC PROGRESS REPORT ---
Subjective Progress Note for:: 03/18/19 Subjective:: YURI COLLADO is a 83 year old male who presented to the emergency room with a one- week history of progressive weakness. The patient his family admit progressive weakness beginning 1 week ago and becoming severe over the 24 hours prior to admission. His weakness was accompanied by dyspnea on exertion, swelling of his lower extremities, mild nonproductive cough, moderate anorexia, moderate fatigue and a fever which increased to 102.5 on the day of admission. They further explained that he recently had a TURP performed in [facility] and his Diaz catheter was removed on the of this month. He had not had any difficulty voiding since that time and has not been passing blood. They deny prior similar symptoms and have not identified any other aggravating or ameliorating factors for his weakness. In the emergency room he was found to have significant pyuria with an elevated lactate at 3.2, hyperglycemia and a chest x-ray showing bibasilar nodular interstitial infiltrates. With these findings patient was admitted to the hospital for further evaluation and treatment. 03/17/2019: Patient is a wheezing. He is on oxygen and does not have home oxygen at baseline. He also developed diarrhea since last night. 03/18/2019: Patient is improving. He says he is feeling better. Is tolerating diet. He still requires oxygen. He is also still wheezing. Diarrhea has resolved. C. difficile was negative. Reason For Visit: WEAKNESS Physical Exam Vital Signs: Temp Pulse Resp BP Pulse Ox 98.1 F 72 18 103/60 97 03/18/19 12:00 03/18/19 12:30 03/18/19 12:30 03/18/19 12:00 03/18/19 12:30 Intake & Output 03/17/19 03/18/19 03/19/19 06:59 06:59 06:59 Intake Total 3100 2050 1100 Output Total 200 Balance 3100 1850 1100 Weight 123 lb 14.397 oz 123 lb 14.397 oz Exam: Patient is no acute distress Alert oriented to time place person No anxiety or depression Head: atraumatic normocephalic Pupils: are equal reactive Neck: is supple and trachea is central no lymphadenopathy No pharyngeal erythema or exudates Heart: Regular rate and rhythm Lungs: Bilateral wheezing Abdomen: nontender nondistended Neurological exam: unremarkable Musculoskeletal: No joint swelling or effusion chronic lower back pain and tenderness No suicidal or homicidal ideation Results Laboratory Results: 03/18/19 06:33 03/18/19 06:33 03/17/19 03/18/19 03/18/19 17:53 06:33 06:33 WBC 7.1 RBC 3.13 L Hgb 9.0 L Hct 26.4 L MCV 84 MCH 28.6 MCHC 34.0 RDW 14.3 H Plt Count 237 Sodium 135.2 L 139.4 Potassium 3.5 L 3.6 Chloride 103 107 Carbon Dioxide 23 23 Anion Gap 9 9 BUN 10 11 Creatinine 0.67 0.67 Est GFR ( Amer) > 60 > 60 Est GFR (Non-Af Amer) > 60 > 60 Glucose 108 100 Calcium 7.5 L 8.2 L Magnesium 2.3 Impressions: Chest X-Ray 03/15/19 17:15 IMPRESSION: Coarse interstitial -nodular changes in both lungs, basilar predominance, left greater than right. No dense consolidation or significant pleural effusion. Assessment and Plan - Diagnosis (1) Acute respiratory failure with hypoxia Is this a current diagnosis for this admission?: Yes Plan: Improved. Due to underlying Pnumonia. Continue supplemental oxygen, IV antibiotics. Day 2 IV Antibiotics. Follow up cultures. 03/17/2019: Currently on nasal cannula oxygen. Continue. Add DuoNeb due to wheezing. 03/18/2019: Still on nasal cannula oxygen. Wean as tolerated. Continues to have wheezing but less than prior. Continue DuoNeb. (2) Atypical pneumonia Is this a current diagnosis for this admission?: Yes Plan: Patient is started on IV azithromycin. He will be monitored on a regular basis for adequate oxygenation utilizing an O2 sat monitor. Additionally daily CBCs will be obtained as part of monitoring his therapeutic response. 03/17/19: Continue current antibiotics. Monitor clinically. DuoNeb as needed. Oxygen as needed. 03/18/2019: Switch to p.o. azithromycin and Vantin. Add oral prednisone due to wheezing. (3) SIRS (systemic inflammatory response syndrome) Is this a current diagnosis for this admission?: Yes Plan: Due to #1. Patient noted to have fever, elevated lactic acid and a known source of infection (urine) with systemic symptoms of fatigue and weakness as well as anorexia. Continue supplemental oxygen, IV antibiotics. Day 2 IV Antibiotics. Follow up cultures. 03/17/2019: Continue antibiotics for pneumonia. Monitor clinically. (4) UTI (urinary tract infection) Qualifiers: Urinary tract infection type: acute cystitis Hematuria presence: with hematuria Qualified Code(s): N30.01 - Acute cystitis with hematuria Is this a current diagnosis for this admission?: Yes Plan: Complicated implicated likely due to recent TURP long-term catheter due to BPH prior to TURP. Continue meropenem IV. Continue flomax. Follow up urine culture. 03/17/2019: Antibiotics. Monitor culture. 03/18/2019: So far urine culture is negative.
[2019-03-18] MEDS ORDERED: PREDNISONE 20 MG TABLET PO ONE (15:00)
[2019-03-18] MEDS: TAMSULOSIN HCL 0.4 MG CAP.SR.24H PO SCH (17:13)
[2019-03-18] MEDS: IPRATROPIUM/ALBUTEROL 0.5-2.5 MG/3 ML AMPUL NEB SCH ×2 (20:09→23:40)
[2019-03-18] MEDS: CEFPODOXIME 200 MG TABLET PO SCH (22:08)
[2019-03-18] MEDS: SIMVASTATIN 10 MG TABLET PO SCH (22:08)
[2019-03-18] MEDS: LATANOPROST 0.005% OPH SOLN 2.5 ML OU SCH (22:10)
[2019-03-19] MEDS: IPRATROPIUM/ALBUTEROL 0.5-2.5 MG/3 ML AMPUL NEB SCH ×5 (04:38→21:07)
[2019-03-19] MEDS: HEPARIN SOD (PORCINE) 5,000 UNIT/ML 1 ML SYRINGE SUBCUT SCH ×3 (05:24→21:43)
[2019-03-19] MEDS: DORZOLAMIDE HCL 2%/TIMOLOL MALEAT 0.5% OPH SOLN 10 ML OU SCH ×2 (09:17→17:43)
[2019-03-19] MEDS: DOCUSATE SODIUM 100 MG CAPSULE PO SCH ×2 (09:17→17:42)
[2019-03-19] MEDS: PREDNISONE 10 MG TABLET PO SCH (09:26)
[2019-03-19] MEDS: FAMOTIDINE 20 MG TABLET PO SCH ×2 (09:26→21:43)
[2019-03-19] MEDS: AZITHROMYCIN 250 MG TABLET PO SCH (09:27)
[2019-03-19] MEDS: FINASTERIDE 5 MG TABLET PO SCH (09:27)
[2019-03-19] MEDS: CEFPODOXIME 200 MG TABLET PO SCH ×2 (09:27→21:42)
--- NOTE | 2019-03-19 13:29 | PDOC PROGRESS REPORT ---
Subjective Progress Note for:: 03/19/19 Subjective:: YURI COLLADO is a 83 year old male who presented to the emergency room with a one- week history of progressive weakness. The patient his family admit progressive weakness beginning 1 week ago and becoming severe over the 24 hours prior to admission. His weakness was accompanied by dyspnea on exertion, swelling of his lower extremities, mild nonproductive cough, moderate anorexia, moderate fatigue and a fever which increased to 102.5 on the day of admission. They further explained that he recently had a TURP performed in [facility] and his Diaz catheter was removed on the of this month. He had not had any difficulty voiding since that time and has not been passing blood. They deny prior similar symptoms and have not identified any other aggravating or ameliorating factors for his weakness. In the emergency room he was found to have significant pyuria with an elevated lactate at 3.2, hyperglycemia and a chest x-ray showing bibasilar nodular interstitial infiltrates. With these findings patient was admitted to the hospital for further evaluation and treatment. 03/17/2019: Patient is a wheezing. He is on oxygen and does not have home oxygen at baseline. He also developed diarrhea since last night. 03/18/2019: Patient is improving. He says he is feeling better. Is tolerating diet. He still requires oxygen. He is also still wheezing. Diarrhea has resolved. C. difficile was negative. 03/19/2019: We will continue to wean off oxygen but he still requires oxygen as of now. But overall he is feeling better. He was able to walk around with the nursing help today. Physical Exam Patient is no acute distress Alert oriented to time place person No anxiety or depression Head: atraumatic normocephalic Pupils: are equal reactive Neck: is supple and trachea is central no lymphadenopathy No pharyngeal erythema or exudates Heart: Regular rate and rhythm Lungs: Bilateral wheezing, improving. Abdomen: nontender nondistended Neurological exam: unremarkable Musculoskeletal: No joint swelling or effusion chronic lower back pain and tenderness No suicidal or homicidal ideation Assessment and Plan (1) Acute respiratory failure with hypoxia Is this a current diagnosis for this admission?: Yes Plan: Improved. Due to underlying Pnum[place]. Continue supplemental oxygen, IV antibiotics. Day 2 IV Antibiotics. Follow up cultures. 03/17/2019: Currently on nasal cannula oxygen. Continue. Add DuoNeb due to wheezing. 03/18/2019: Still on nasal cannula oxygen. Wean as tolerated. Continues to have wheezing but less than prior. Continue DuoNeb. 03/19/2019: Seems to be improving. We will continue to wean oxygen. Possibly can DC oxygen today or tomorrow. (2) Atypical pneumonia Is this a current diagnosis for this admission?: Yes Plan: Patient is started on IV azithromycin. He will be monitored on a regular basis for adequate oxygenation utilizing an O2 sat monitor. Additionally daily CBCs will be obtained as part of monitoring his therapeutic response. 03/17/19: Continue current antibiotics. Monitor clinically. DuoNeb as needed. Oxygen as needed. 03/18/2019: Switch to p.o. azithromycin and Vantin. Add oral prednisone due to wheezing. 03/19/2019: Continue oral antibiotics. Continue prednisone. (3) SIRS (systemic inflammatory response syndrome) Is this a current diagnosis for this admission?: Yes Plan: Due to #1. Patient noted to have fever, elevated lactic acid and a known source of infection (urine) with systemic symptoms of fatigue and weakness as well as anorexia. Continue supplemental oxygen, IV antibiotics. Day 2 IV Antibiotics. Follow up cultures. 03/17/2019: Continue antibiotics for pneumonia. Monitor clinically. (4) UTI (urinary tract infection) Qualifiers: Urinary tract infection type: acute cystitis Hematuria presence: with hematuria Qualified Code(s): N30.01 - Acute cystitis with hematuria Is this a current diagnosis for this admission?: Yes Plan: Complicated implicated likely due to recent TURP long-term catheter due to BPH prior to TURP. Continue meropenem IV. Continue flomax. Follow up urine culture. 03/17/2019: Antibiotics. Monitor culture. 03/18/2019: So far urine culture is negative. Reason For Visit: WEAKNESS Physical Exam Vital Signs: Temp Pulse Resp BP Pulse Ox 98.4 F 68 18 134/66 H 98 03/18/19 23:15 03/19/19 11:56 03/19/19 11:56 03/18/19 23:15 03/19/19 11:56 Intake & Output 03/18/19 03/19/19 03/20/19 06:59 06:59 06:59 Intake Total 0 1940 Output Total 200 400 Balance 1850 1540 Weight 123 lb 14.397 oz 123 lb 14.397 oz Results Laboratory Results: 03/18/19 06:33 03/18/19 06:33 Impressions: Chest X-Ray 03/15/19 17:15 IMPRESSION: Coarse interstitial -nodular changes in both lungs, basilar predominance, left greater than right. No dense consolidation or significant pleural effusion. Assessment and Plan - Diagnosis (1) Acute respiratory failure with hypoxia Is this a current diagnosis for this admission?: Yes (2) Atypical pneumonia Is this a current diagnosis for this admission?: Yes (3) SIRS (systemic inflammatory response syndrome) Is this a current diagnosis for this admission?: Yes (4) UTI (urinary tract infection) Qualifiers: Urinary tract infection type: acute cystitis Hematuria presence: with hematuria Qualified Code(s): N30.01 - Acute cystitis with hematuria Is this a current diagnosis for this admission?: Yes
[2019-03-19] MEDS: TAMSULOSIN HCL 0.4 MG CAP.SR.24H PO SCH (17:45)
[2019-03-19] MEDS: SIMVASTATIN 10 MG TABLET PO SCH (21:43)
[2019-03-19] MEDS: LATANOPROST 0.005% OPH SOLN 2.5 ML OU SCH (21:44)
[2019-03-20] MEDS: IPRATROPIUM/ALBUTEROL 0.5-2.5 MG/3 ML AMPUL NEB SCH ×4 (02:35→12:09)
[2019-03-20] MEDS: HEPARIN SOD (PORCINE) 5,000 UNIT/ML 1 ML SYRINGE SUBCUT SCH (05:21)
[2019-03-20] MEDS: DORZOLAMIDE HCL 2%/TIMOLOL MALEAT 0.5% OPH SOLN 10 ML OU SCH (09:01)
[2019-03-20] MEDS: DOCUSATE SODIUM 100 MG CAPSULE PO SCH (09:01)
[2019-03-20 09:03] VITALS: BP 137/63
[2019-03-20] MEDS: AZITHROMYCIN 250 MG TABLET PO SCH (09:03)
[2019-03-20] MEDS: FAMOTIDINE 20 MG TABLET PO SCH (09:03)
[2019-03-20] MEDS: FINASTERIDE 5 MG TABLET PO SCH (09:03)
[2019-03-20] MEDS: CEFPODOXIME 200 MG TABLET PO SCH (09:03)
[2019-03-20] MEDS: PREDNISONE 10 MG TABLET PO SCH (09:03)
--- NOTE | 2019-03-20 11:55 | PDOC DISCHARGE SUMMARY ---
General - Admit/Disc Date/PCP Admission Date/Primary Care Provider: 03/15/19 21:04 Discharge Date: 03/20/19 - Discharge Diagnosis (1) Acute respiratory failure with hypoxia Is this a current diagnosis for this admission?: Yes (2) Atypical pneumonia Is this a current diagnosis for this admission?: Yes (3) SIRS (systemic inflammatory response syndrome) Is this a current diagnosis for this admission?: Yes (4) UTI (urinary tract infection) Is this a current diagnosis for this admission?: Yes - Additional Information Resuscitation Status: Full Code Discharge Diet: As Tolerated Discharge Activity: Activity As Tolerated Prescriptions: Albuterol Sulfate [Albuterol Sulfate Hfa] 8.5 gm IH Q4HP PRN #1 [id number] PRN Reason: Azithromycin [Zithromax 250 mg Tablet] 250 mg PO DAILY #3 tablet Cefpodoxime Proxetil [Vantin 200 mg Tablet] 400 mg PO Q12 #14 tablet Ipratropium/Albuterol Sulfate [Combivent Respimat 4 gm Mdi] 1 puff IH Q6HP PRN #1 aer.w.adap PRN Reason: Prednisone [Deltasone 10 mg Tablet] 20 mg PO DAILY #5 tablet Home Medications: Dorzolamide HCl/Timolol Maleat [Cosopt Oph Soln 10 ml] 2 drop OU BID 03/16/19 Finasteride [Proscar 5 mg Tablet] 5 mg PO DAILY 03/16/19 Hydrocortisone [Proctozone-Hc] 1 applic TP BIDP PRN 03/16/19 Latanoprost/Pf [Latanoprost 0.005% Eye Drop] 2 drop OU QHS 03/16/19 Lovastatin [Altoprev] 20 mg PO QHS 03/16/19 Tamsulosin HCl [Flomax 0.4 mg Cap.sr] 0.4 mg PO DAILY 03/16/19 Acetaminophen [Tylenol 650 mg Supp] 650 mg LA Q4HP PRN supp.rect 03/20/19 Albuterol Sulfate [Albuterol Sulfate Hfa] 8.5 gm IH Q4HP PRN #1 hfa.aer.ad 03/20/19 Azithromycin [Zithromax 250 mg Tablet] 250 mg PO DAILY #3 tablet 03/20/19 Cefpodoxime Proxetil [Vantin 200 mg Tablet] 400 mg PO Q12 #14 tablet 03/20/19 Ipratropium/Albuterol Sulfate [Combivent Respimat 4 gm Mdi] 1 puff IH Q6HP PRN #1 aer.w.adap 03/20/19 Prednisone [Deltasone 10 mg Tablet] 20 mg PO DAILY #5 tablet 03/20/19 History of Present Illness History of Present Illness: YURI COLLADO is a 83 year old male Hospital Course Hospital Course: YURI COLLADO is a 83 year old male who presented to the emergency room with a one- week history of progressive weakness. The patient his family admit progressive weakness beginning 1 week ago and becoming severe over the 24 hours prior to admission. His weakness was accompanied by dyspnea on exertion, swelling of his lower extremities, mild nonproductive cough, moderate anorexia, moderate fatigue and a fever which increased to 102.5 on the day of admission. They further explained that he recently had a TURP performed in [facility] and his Diaz catheter was removed on the of this month. He had not had any difficulty voiding since that time and has not been passing blood. They deny prior similar symptoms and have not identified any other aggravating or ameliorating factors for his weakness. In the emergency room he was found to have significant pyuria with an elevated lactate at 3.2, hyperglycemia and a chest x-ray showing bibasilar nodular interstitial infiltrates. With these findings patient was admitted to the hospital for further evaluation and treatment. 03/17/2019: Patient is a wheezing. He is on oxygen and does not have home oxygen at baseline. He also developed diarrhea since last night. 03/18/2019: Patient is improving. He says he is feeling better. Is tolerating diet. He still requires oxygen. He is also still wheezing. Diarrhea has resolved. C. difficile was negative. 03/19/2019: We will continue to wean off oxygen but he still requires oxygen as of now. But overall he is feeling better. He was able to walk around with the nursing help today. Physical Exam Patient is no acute distress Alert oriented to time place person No anxiety or depression Head: atraumatic normocephalic Pupils: are equal reactive Neck: is supple and trachea is central no lymphadenopathy No pharyngeal erythema or exudates Heart: Regular rate and rhythm Lungs: Bilateral wheezing, improving. Abdomen: nontender nondistended Neurological exam: unremarkable Musculoskeletal: No joint swelling or effusion chronic lower back pain and te nderness No suicidal or homicidal ideation Assessment and Plan (1) Acute respiratory failure with hypoxia Improved. Due to underlying Pnum[place]. Continue supplemental oxygen, IV antibiotics. Day 2 IV Antibiotics. Follow up cultures. 03/17/2019: Currently on nasal cannula oxygen. Continue. Add DuoNeb due to wheezing. 03/18/2019: Still on nasal cannula oxygen. Wean as tolerated. Continues to have wheezing but less than prior. Continue DuoNeb. 03/19/2019: Seems to be improving. We will continue to wean oxygen. Possibly can DC oxygen today or tomorrow. (2) Atypical pneumonia Patient is started on IV azithromycin. He will be monitored on a regular basis for adequate oxygenation utilizing an O2 sat monitor. Additionally daily CBCs will be obtained as part of monitoring his therapeutic response. 03/17/19: Continue current antibiotics. Monitor clinically. DuoNeb as needed. Oxygen as needed. 03/18/2019: Switch to p.o. azithromycin and Vantin. Add oral prednisone due to wheezing. 03/19/2019: Continue oral antibiotics. Continue prednisone. (3) SIRS (systemic inflammatory response syndrome) Due to #1. Patient noted to have fever, elevated lactic acid and a known source of infe ction (urine) with systemic symptoms of fatigue and weakness as well as anorexia. Continue supplemental oxygen, IV antibiotics. Day 2 IV Antibiotics. Follow up cultures. 03/17/2019: Continue antibiotics for pneumonia. Monitor clinically. (4) UTI (urinary tract infection) Complicated implicated likely due to recent TURP long-term catheter due to BPH prior to TURP. Continue meropenem IV. Continue flomax. Follow up urine culture. 03/17/2019: Antibiotics. Monitor culture. 03/18/2019: So far urine culture is negative. Patient significantly improved. He is off oxygen now. He ambulated without difficulty. He is stable for discharge to home. Wheezing significantly improved. He wants to go home today. Will discharge home and that he will finish a course of antibiotics outpatient. Also short course of steroids outpatient. Inhaled bronchodilators scripts were sent to the pharmacy. Physical Exam Vital Signs: Temp Pulse Resp BP Pulse Ox 97.4 F 64 16 137/63 H 94 03/20/19 08:00 03/20/19 08:18 03/20/19 08:18 03/20/19 08:00 03/20/19 08:18 Intake & Output 03/19/19 03/20/19 03/21/19 06:59 06:59 06:59 Intake Total 1940 1000 Output Total 400 600 Balance 1540 400 Weight 123 lb 14.397 oz 118 lb 13.266 oz Results Laboratory Results: 03/18/19 06:33 03/18/19 06:33 Impressions: Chest X-Ray 03/15/19 17:15 IMPRESSION: Coarse interstitial -nodular changes in both lungs, basilar predominance, left greater than right. No dense consolidation or significant pleural effusion. Qualifiers - * PATIENT BEING DISCHARGED WITH ANY OF THE FOLLOWING DIAGNOSIS: No Acute Heart Failure Is this a Heart Failure Patient?: No
== END 2019-03-20 13:22 | disposition home or self-care (01) | DRG 698 ==
LOC: ER 16:57 → EH 21:04 → 5 22:58
PROVIDERS: ADMIT Emergency Medicine; ATTEND Emergency Medicine
PROC: 3E0F73Z Introduction of Anti-inflammatory into Respiratory Tract, Via Natural or Artificial Opening (ICD-10-PCS; principal; 2019-03-16)
DX: T83.511A Infection and inflammatory reaction due to indwelling urethral catheter, initial encounter (principal); J18.9 Pneumonia, unspecified organism; J96.01 Acute respiratory failure with hypoxia; N30.01 Acute cystitis with hematuria; R19.7 Diarrhea, unspecified; N40.1 Benign prostatic hyperplasia with lower urinary tract symptoms; E78.5 Hyperlipidemia, unspecified; E78.00 Pure hypercholesterolemia, unspecified; I10 Essential (primary) hypertension; Z79.899 Other long term (current) drug therapy; Z86.14 Personal history of Methicillin resistant Staphylococcus aureus infection
CPT/HCPCS: 36415; 71046; 80048; 80053; 81001; 82803; 83605; 83735; 84439; 84443; 84481; 85025; 85027; 85610; 87040; 87086; 87493; 93005; 93010; 94640; 99285; J0456; J0696; J1335; J1644; J2185; J3490; J7030; J7060; J7120; J7512; J7620